=== PATIENT | male | born 1940 | race Caucasian/White ===

== ENCOUNTER 2021-10-02 10:12 | Day surgery (SDC) | payer MEDICARE, BC ==
[2021-09-27 10:05] LABS: BASOPHILS % (AUTO) 0.7 % (0-1); EOSINOPHILS # (AUTO) 0.1 X10'3 (0-0.9); EOSINOPHILS % (AUTO) 3.4 % (0-6); HEMATOCRIT 43.3 % (42.0-52.0); HEMOGLOBIN 15.3 g/dl (14.0-17.9); LYMPHOCYTES # (AUTO) 1.4 X10'3 (1.1-4.8); LYMPHOCYTES % (AUTO) 47.2 % (21-51); MEAN CORPUSCULAR HEMOGLOBIN 35.1 PG (27.0-31.0); MEAN CORPUSCULAR HGB CONC 35.3 g/dL (33.0-36.5); MEAN CORPUSCULAR VOLUME 99.5 FL (78-98); MEAN PLATELET VOLUME 7.4 FL (7.4-10.4); MONOCYTES # (AUTO) 0.3 X10'3 (0-0.9); MONOCYTES % (AUTO) 8.8 % (2-12); NEUTROPHILS # (AUTO) 1.2 X10'3 (1.8-7.7); NEUTROPHILS % (AUTO) 39.9 % (42-75); PLATELET COUNT 266 X10'3 (140-440); RED BLOOD COUNT 4.35 X10'6 (4.70-6.10); RED CELL DISTRIBUTION WIDTH 13.1 % (11.5-14.5)
[2021-09-27 10:15] LABS: ALBUMIN 3.6 G/DL (3.4-5.0); ANION GAP 10 (8-16); BLOOD UREA NITROGEN 23 MG/DL (7-18); BUN/CREATININE RATIO 18.5 (5.4-32.0); CALCIUM 8.6 MG/DL (8.5-10.1); CHLORIDE 104 MMOL/L (99-107); CREATININE 1.24 MG/DL (0.60-1.10); GLUCOSE 104 MG/DL (70-104); POTASSIUM 4.2 MMOL/L (3.5-5.1); SODIUM 138 MMOL/L (135-145); eGFR 56 ML/MIN
[2021-09-27 10:18] LABS: PARTIAL THROMBOPLASTIN TIME 30 SECONDS (22-32)
[2021-09-27 11:26] LABS: PLATELET ESTIMATE NORMAL; TOTAL CELLS COUNTED 100
[2021-09-27 11:55] LABS: SMUDGE CELLS 2+
[~2021-10-02] VITALS: Ht 175.3 cm; Wt 85.5 kg
[2021-10-02] VITALS (10 sets, daily range): BP systolic 114–170; BP diastolic 54–79
[2021-10-02] MEDS ORDERED: diphenhydrAMINE 25mg capsule PO PRN (10:30)
[2021-10-02] MEDS ORDERED: LORazepam 0.5 MG tablet PO PRN (10:30)
[2021-10-02] MEDS ORDERED: normal saline 1,000 ML IV SCH (10:30)
[2021-10-02] MEDS ORDERED: APIX5TAB3 PO (11:03)
[2021-10-02] MEDS ORDERED: HYDR12.55 PO (11:03)
[2021-10-02] MEDS ORDERED: AMLO5TAB16 PO (11:03)
[2021-10-02] MEDS ORDERED: ZOLP12.543 PO (11:03)
[2021-10-02] MEDS ORDERED: GEMF600T89 PO (11:03)
[2021-10-02] MEDS ORDERED: LEVO75TA7 PO (11:03)
[2021-10-02] MEDS ORDERED: LOSA100T57 PO (11:03)
[2021-10-02] MEDS ORDERED: DOCU-21 PO (11:10)
[2021-10-02] MEDS ORDERED: FEXO-124 PO (11:10)
[2021-10-02] MEDS ORDERED: SUPER B COMPLEX (11:10)
[2021-10-02] MEDS ORDERED: FLUTICASONE (11:10)
[2021-10-02] MEDS ORDERED: INUL2TAB5 PO ×2 (11:10→11:15)
[2021-10-02] MEDS ORDERED: ACETAMINOPHEN (11:10)
[2021-10-02] MEDS ORDERED: MELA5TAB12 PO (11:10)
[2021-10-02] MEDS ORDERED: PRAV20TA4 PO (11:10)
[2021-10-02] MEDS ORDERED: CHOL20002 PO (11:10)
[2021-10-02] MEDS ORDERED: FLUT16SP2 BOTHNARES (11:11)
[2021-10-02] MEDS ORDERED: ACET-1995 PO (11:13)
[2021-10-02] MEDS ORDERED: nitroGLYCERIN-Tridil 50MG/D5W 250 ML IV ONE (12:21)
[2021-10-02] MEDS ORDERED: verapamil 2.5 mg/ml inj IV ONE (12:22)
[2021-10-02] MEDS ORDERED: heparin 1,000unit/ml 10ml vial 10 ML ONE (12:22)
[2021-10-02] MEDS ORDERED: fentaNYL/PF 50MCG/1 ML 2ML syringe ONE (12:22)
[2021-10-02] MEDS ORDERED: midazolam 1 mg/ML 2ml injection ONE (12:22)
[2021-10-02] MEDS ORDERED: iohexol 350MG/ML 100ml bottle IV ONE (12:22)
[2021-10-02] MEDS ORDERED: LIDOcaine 1% (10mg/ml)w/preservative injection 20ml MDV ONE (12:23)
[2021-10-02] MEDS ORDERED: HYDROcodone/acetaminophen 10/325mg tab PO PRN (14:10)
[2021-10-02] MEDS ORDERED: ondansetron/PF 4mg/2ml inj IV PRN (14:10)
[2021-10-02] MEDS ORDERED: OXAZEpam 15mg capsule PO PRN (14:10)
[2021-10-02] MEDS ORDERED: normal saline 1000ml 1,000 ML IV SCH (14:10)
[2021-10-02] MEDS ORDERED: HYDROcodone/acetaminophen 5mg/325mg tablet PO PRN (14:10)
[2021-10-02] MEDS ORDERED: proCHLORperazine 10 MG/2 ml inj IV PRN (14:10)
== END 2021-10-02 18:25 | disposition home or self-care (01) ==
LOC: SSTAY O 10:12
PROVIDERS: ATTEND Internal Medicine Interventional Cardiology
DX: R94.39 Abnormal result of other cardiovascular function study (principal); R07.9 Chest pain, unspecified; I25.10 Atherosclerotic heart disease of native coronary artery without angina pectoris; I10 Essential (primary) hypertension; E11.9 Type 2 diabetes mellitus without complications; E78.5 Hyperlipidemia, unspecified; I48.91 Unspecified atrial fibrillation; I49.5 Sick sinus syndrome; I65.23 Occlusion and stenosis of bilateral carotid arteries; Z79.899 Other long term (current) drug therapy; Z79.01 Long term (current) use of anticoagulants; Z87.891 Personal history of nicotine dependence
CPT/HCPCS: 80048; 85025; 85610; 85730; 93005; 93459; 93880; 93971; 99152; C1769; C1894; J1644; J2001; J2250; J3010; J7030; Q0163; Q9967; 85007; 99153; A5120; J3490

== ENCOUNTER 2021-10-10 05:31 | Inpatient (IN) | payer MEDICARE, BC ==
[2021-10-09 14:29] LABS: CLARITY,URINE CLEAR (Clear); COLOR,URINE YELLOW (Yellow); GLUCOSE, URINE NEGATIVE (Neg); KETONES,URINE NEGATIVE (Neg); LEUKOCYTE ESTERASE ,URINE NEGATIVE (Neg); NITRITES, URINE NEGATIVE (Neg); OCCULT BLOOD,URINE NEGATIVE (Neg); PROTEIN,URINE NEGATIVE (Neg); UA COLLECTION TYPE CLN CATCH MIDSTREAM; UROBILINOGEN,URINE 0.2 E.U/dL (0.2-1.0)
[2021-10-09 14:37] LABS: PRE OP INR 1.1 INR; PRE OP PROTIME 10.9 SECONDS (9.0-12.0)
[2021-10-09 14:45] LABS: ABG BASE EXCESS -3.7 mmol/L (-2.0-2.0); ABG HCO3 19.4 mmol/L (22.0-26.0); ABG OXYGEN SATURATION 97.3 % (94-97); ABG PCO2 (T) 30.7 mmHg (35.0-48.0); ABG PO2 (T) 100.9 mmHg (75.0-100.0); ALLEN'S TEST POSITIVE; FCOHb 0.4 % (0.0-3.9); FMetHb 0.1 % (0.0-1.5); FO2Hb 96.8 % (94-97); TOTAL HEMOGLOBIN 16.1 G/dl (14.0-18.0)
[2021-10-09 14:46] LABS: BASOPHILS % (AUTO) 0.6 % (0-1); EOSINOPHILS # (AUTO) 0.1 X10'3 (0-0.9); EOSINOPHILS % (AUTO) 1.8 % (0-6); MEAN CORPUSCULAR HEMOGLOBIN 35.2 PG (27.0-31.0); MEAN CORPUSCULAR HGB CONC 35.2 g/dL (33.0-36.5); MEAN CORPUSCULAR VOLUME 99.9 FL (78-98); MEAN PLATELET VOLUME 7.9 FL (7.4-10.4); MONOCYTES # (AUTO) 0.4 X10'3 (0-0.9); MONOCYTES % (AUTO) 10.2 % (2-12); NEUTROPHILS # (AUTO) 1.2 X10'3 (1.8-7.7); NEUTROPHILS % (AUTO) 33.4 % (42-75); PRE OP HEMATOCRIT 44.8 % (42.0-52.0); PRE OP HEMOGLOBIN 15.8 g/dL (14.0-17.9); PRE OP PLATELET COUNT 232 X10'3 (140-440); RED BLOOD COUNT 4.48 X10'6 (4.70-6.10); RED CELL DISTRIBUTION WIDTH 13.1 % (11.5-14.5)
[2021-10-09 14:48] LABS: ALBUMIN 3.5 G/DL (3.4-5.0); ALBUMIN/GLOBULIN RATIO 0.8 (1.1-1.5); ALKALINE PHOSPHATASE 81 IU/L (46-116); BLOOD UREA NITROGEN 44 MG/DL (7-18); BUN/CREATININE RATIO 36.7 (5.4-32.0); CHLORIDE 106 MMOL/L (99-107); PRE OP ALT 21 U/L (30-65); PRE OP ANION GAP 13 (8-16); PRE OP AST 16 U/L (10-37); PRE OP BILIRUB, TOTAL 0.5 MG/DL (0.0-1.0); PRE OP GLUCOSE 98 MG/DL (70-104); PRE OP POTASSIUM 4.3 MMOL/L (3.4-5.1); PRE OP SODIUM 141 MMOL/L (135-145); TOTAL CARBON DIOXIDE 22.3 MMOL/L (24-32); TOTAL PROTEIN 7.8 G/DL (6.4-8.2); eGFR 59 ML/MIN
[2021-10-09 15:49] LABS: PLATELET ESTIMATE NORMAL; SMUDGE CELLS 1+; TOTAL CELLS COUNTED 100
[2021-10-09 16:04] LABS: HEMOGLOBIN A1C > 14.0 % (4.5-6.2)
[2021-10-10] VITALS (16 sets, daily range): BP systolic 91–150; BP diastolic 48–75
[~2021-10-10] VITALS: Ht 175.3 cm; Wt 94.5 kg
[~2021-10-10 05:31] MED LIST: ACET-1995 PO; AMLO5TAB16 PO; APIX5TAB3 PO; CHOL20002 PO; DOCU-21 PO; FEXO-124 PO; FLUT16SP2 BOTHNARES; GEMF600T89 PO; HYDR12.55 PO; INUL2TAB5 PO; LEVO75TA7 PO; LORazepam 2 mg/ml vial IV PRN; LOSA100T57 PO; MELA5TAB12 PO; PRAV20TA4 PO; SUPER B COMPLEX; VANCOMYCIN 1,500MG inj. 1,500 MG in normal saline 500ml IV soln 500 ML IV ONE; ZOLP12.543 PO; albuterol 2.5 MG/3 ML nebule NEB PRN; ceFAZolin 1000mg inj ONE; cefazolin/dext.iso 2gm/50ml 50 ML IV ONE; dextrose 50%-water 50ml dispensing syringe IV PRN; dextrose ORAL solution 15 GM/59 ML bottle PO PRN; epiNEPHrine 1 mg/ml inj ONE; famotidine 20mg tablet PO ONE; gabapentin 400mg capsule PO ONE; glucagon, human recombinant 1mg kit SUBCUT PRN; insulin Lispro (HumaLOG) vial - multi-dose SQ SCH; insulin glargine (Lantus) pen - multi-dose SQ SCH; metoprolol tartrate 12.5mg (1/2 tablet) PO ONE; mupirocin 2% nasal ointment 1gm UD NS ONE; ringers solution, lacted 1,000 ML IV SCH
[2021-10-10] MEDS ORDERED: dextrose 50%-water 50ml dispensing syringe IV PRN ×2 (06:10→10:55)
[2021-10-10] MEDS ORDERED: Insulin Reg/NS 100units/100mL 100 ML IV SCH ×2 (06:10→10:55)
[2021-10-10] MEDS ORDERED: sevoflurane 250ml liquid IH ONE (07:48)
[2021-10-10] MEDS ORDERED: neostigmine methylsulfate 1 MG/ML 10ml vial ONE (07:48)
[2021-10-10] MEDS ORDERED: protamine sulf. 10mg/ml inj. IV ONE (07:48)
[2021-10-10] MEDS ORDERED: rocuronium 10mg/ml inj IV ONE ×2 (07:48→07:54)
[2021-10-10] MEDS ORDERED: nitroGLYCERIN in D5W 50mg/250ml (Tridil) infusion IV ONE (07:48)
[2021-10-10] MEDS ORDERED: amiodarone in dextrose, iso-osm 150mg/100ml bag IV ONE (07:48)
[2021-10-10] MEDS ORDERED: SUFENTANIL CITRATE 50 MCG/ML 2ml ampule IV ONE (07:49)
[2021-10-10] MEDS ORDERED: MIDAZolam 1 MG/ML 5ML VIAL ONE (07:50)
[2021-10-10] MEDS ORDERED: propofol inj 20 ML IV ONE (07:54)
[2021-10-10] MEDS ORDERED: phenylephrine 10mg/ml inj. ONE (08:00)
[2021-10-10] MEDS ORDERED: heparin 10,000 units/1 ML INJ ONE (08:00)
[2021-10-10] MEDS ORDERED: sodium bicarbonate (8.4%) 1 mEq/ml syringe ONE (08:00)
[2021-10-10] MEDS ORDERED: papaverine 30 mg/ml 2ml inj. IA ONE (08:00)
[2021-10-10] MEDS ORDERED: albumin (human) 25% 100 ML IV solution IV ONE (08:00)
[2021-10-10] MEDS ORDERED: aminocaproic acid 250 MG/1 ML inj. ONE (08:00)
[2021-10-10] MEDS ORDERED: heparin 10,000 units/1 ML INJ IR ONE (08:00)
[2021-10-10] MEDS ORDERED: methylPREDNISolone sod succ 1000mg vial ONE (08:00)
[2021-10-10] MEDS ORDERED: calcium chloride 100 MG/1 ML inj IV ONE (08:00)
[2021-10-10 08:32] LABS: ABG BASE EXCESS -4.8 mmol/L (-2.0-2.0); ABG OXYGEN SATURATION 99.5 % (94-97); ABG PO2 227.8 mmHg (75.0-100.0); CL (ABG) 109 mmol/L (98-110); FCOHb 0.6 % (0.0-3.9); FMetHb 0.3 % (0.0-1.5); FO2Hb 98.6 % (94-97); GLUCOSE (ABG) 133 mg/dl (70-105); K (ABG) 3.9 mmol/L (3.5-5.0); TOTAL HEMOGLOBIN 14.4 G/dl (14.0-18.0)
[2021-10-10 09:13] LABS: ABG BASE EXCESS VENOUS -2.4 mmol/L (-2.0 - 2.0); ABG HCO3 VENOUS 22.6 mmol/L (21.0-28.0); ABG PCO2 VENOUS 39.4 mmHg (41.0-54.0); ABG PO2 VENOUS 49.9 mmHg (25.0-35.0); CL (ABG) 104 mmol/L (98-110); FCOHb VENOUS 0.3 %; FHHb VENOUS 14.3 %; FMetHb VENOUS 0.3 % (0.0 - 0.5); FO2Hb VENOUS 85.1 %; GLUCOSE (ABG) 120 mg/dl (70-105); IONIZED CA (ABG) 0.94 mmol/L (1.10-1.43); K (ABG) 3.9 mmol/L (3.5-5.0); TOTAL HEMOGLOBIN 10.6 G/dl (14.0-18.0)
[2021-10-10 09:17] LABS: ABG BASE EXCESS -2.8 mmol/L (-2.0-2.0); ABG HCO3 21.7 mmol/L (22.0-26.0); ABG OXYGEN SATURATION 99.6 % (94-97); ABG PCO2 36.2 mmHg (35.0-48.0); ABG PO2 397.1 mmHg (75.0-100.0); CL (ABG) 105 mmol/L (98-110); FCOHb 0.3 % (0.0-3.9); FMetHb 0.3 % (0.0-1.5); GLUCOSE (ABG) 123 mg/dl (70-105); IONIZED CA (ABG) 0.99 mmol/L (1.10-1.43); K (ABG) 3.9 mmol/L (3.5-5.0); TOTAL HEMOGLOBIN 10.5 G/dl (14.0-18.0)
[2021-10-10 09:36] LABS: ACT @ 1.70 U 353 SEC (193-297); ACT @ 2.84 U 417 SEC (260-420); BASELINE ACT 158 SEC (101-148); PATIENT WEIGHT 85.0k KG
[2021-10-10 09:48] LABS: ABG BASE EXCESS -3.9 mmol/L (-2.0-2.0); ABG HCO3 20.8 mmol/L (22.0-26.0); ABG OXYGEN SATURATION 99.6 % (94-97); ABG PCO2 36.5 mmHg (35.0-48.0); CL (ABG) 106 mmol/L (98-110); FMetHb 0.3 % (0.0-1.5); FO2Hb 99.3 % (94-97); GLUCOSE (ABG) 136 mg/dl (70-105); IONIZED CA (ABG) 1.02 mmol/L (1.10-1.43); K (ABG) 4.5 mmol/L (3.5-5.0); TOTAL HEMOGLOBIN 11.2 G/dl (14.0-18.0)
[2021-10-10 10:13] LABS: ABG BASE EXCESS -1.4 mmol/L (-2.0-2.0); ABG OXYGEN SATURATION 99.4 % (94-97); ABG PCO2 37.7 mmHg (35.0-48.0); ABG PO2 344.5 mmHg (75.0-100.0); CL (ABG) 106 mmol/L (98-110); FCOHb 0.3 % (0.0-3.9); FMetHb 0.3 % (0.0-1.5); FO2Hb 98.8 % (94-97); GLUCOSE (ABG) 177 mg/dl (70-105); IONIZED CA (ABG) 1.66 mmol/L (1.10-1.43); K (ABG) 4.6 mmol/L (3.5-5.0); TOTAL HEMOGLOBIN 10.7 G/dl (14.0-18.0)
[2021-10-10 10:36] LABS: ABG BASE EXCESS VENOUS -3.1 mmol/L (-2.0 - 2.0); ABG HCO3 VENOUS 22.1 mmol/L (21.0-28.0); ABG PCO2 VENOUS 40.3 mmHg (41.0-54.0); ABG PO2 VENOUS 50.7 mmHg (25.0-35.0); CL (ABG) 107 mmol/L (98-110); FCOHb VENOUS 0.3 %; FHHb VENOUS 15.8 %; FMetHb VENOUS 0.3 % (0.0 - 0.5); FO2Hb VENOUS 83.6 %; GLUCOSE (ABG) 177 mg/dl (70-105); IONIZED CA (ABG) 1.18 mmol/L (1.10-1.43); K (ABG) 4.5 mmol/L (3.5-5.0); TOTAL HEMOGLOBIN 10.8 G/dl (14.0-18.0)
[2021-10-10 10:39] LABS: ACTIVATED CLOTTING TIME 151 SEC (101-148)
[2021-10-10] MEDS ORDERED: bisacodyl 10mg suppository rectal RC PRN (10:55)
[2021-10-10] MEDS ORDERED: insulin glargine (Lantus) pen - multi-dose SQ PRN (10:55)
[2021-10-10] MEDS ORDERED: metoclopramide 5 mg/ml inj IV PRN (10:55)
[2021-10-10] MEDS ORDERED: magnesium citrate 296ml oral solution PO PRN (10:55)
[2021-10-10] MEDS ORDERED: HYDROcodone/acetaminophen 10/325mg tab PO PRN (10:55)
[2021-10-10] MEDS ORDERED: potassium CL 10mEq/100ml bag 100 ML IV PRN (10:55)
[2021-10-10] MEDS ORDERED: potassium Cl 40MEQ/1/2NS 520ml 520 ML IV PRN (10:55)
[2021-10-10] MEDS ORDERED: magnesium hydroxide 30ml (MOM) UD suspension PO PRN (10:55)
[2021-10-10] MEDS ORDERED: Neutra Phos packet PO PRN (10:55)
[2021-10-10] MEDS ORDERED: acetaminophen 325mg tablet PO PRN ×2 (10:55)
[2021-10-10] MEDS ORDERED: potassium Cl 40MEQ/250ML bag 250 ML IV PRN (10:55)
[2021-10-10] MEDS ORDERED: nitroGLYCERIN-Tridil 50MG/D5W 250 ML IV SCH (10:55)
[2021-10-10] MEDS ORDERED: mineral oil 133ml enema RC PRN (10:55)
[2021-10-10] MEDS ORDERED: sodium chloride 0.45% 1,000 ML IV SCH (10:55)
[2021-10-10] MEDS ORDERED: NORepinephrine 8mg/ 250ml NS 250 ML IV PRN (10:55)
[2021-10-10] MEDS ORDERED: magnesium 2GM in 50ml NS 50 ML IV PRN (10:55)
[2021-10-10] MEDS ORDERED: niCARDipine-NS 40mg/200ml IVPB 200 ML IV PRN (10:55)
[2021-10-10] MEDS ORDERED: pantoprazole 40 MG vial IV ONE (10:55)
[2021-10-10] MEDS ORDERED: ondansetron/PF 4mg/2ml inj IV PRN (10:55)
[2021-10-10] MEDS ORDERED: sodium phosphate inj. 15 MMOL in dextrose 5%-water 250 ML IV PRN (10:55)
[2021-10-10] MEDS ORDERED: magnesium 4gm in 100ml NS 100 ML IV PRN (10:55)
[2021-10-10] MEDS ORDERED: sodium phosphate inj. 30 MMOL in dextrose 5%-water 250 ML IV PRN (10:55)
[2021-10-10] MEDS ORDERED: morphine 4 MG/ML inj SYRINge IV PRN (10:55)
[2021-10-10] MEDS ORDERED: potassium Cl 20 mEq SR tablet PO PRN (10:55)
--- NOTE | 2021-10-10 11:10 | NUR ---
Received to room , accompanied by MDs and surgical crew. Placed on ventilator, to facility designer, arterial line and PA line pressure monitored. Chest tubes to suction at 20 cm. Shelley cath to gravity drainage. Dressings are dry and intact. See assessment record. All vasoactive drugs are infusing via central line.
[2021-10-10 11:24] LABS: ABG BASE EXCESS -4.7 mmol/L (-2.0-2.0); ABG HCO3 19.9 mmol/L (22.0-26.0); ABG OXYGEN SATURATION 98.5 % (94-97); ABG PCO2 (T) 35.4 mmHg (35.0-48.0); ABG PO2 (T) 163.8 mmHg (75.0-100.0); FCOHb 0.3 % (0.0-3.9); FMetHb 0.3 % (0.0-1.5); FO2Hb 97.9 % (94-97); PEEP 5 cm H2O; RESPIRATORY RATE 12 b/min; TIDAL VOLUME 500 mL; TOTAL HEMOGLOBIN 13.2 G/dl (14.0-18.0)
[2021-10-10] MEDS: albumin (Human) 5% 250ml 250 ML IV PRN ×5 (12:10→20:35)
[2021-10-10 12:16] LABS: BASOPHILS % (AUTO) 0.3 % (0-1); EOSINOPHILS % (AUTO) 0.9 % (0-6); HEMATOCRIT 36.2 % (42.0-52.0); HEMOGLOBIN 12.8 g/dl (14.0-17.9); LYMPHOCYTES # (AUTO) 0.5 X10'3 (1.1-4.8); LYMPHOCYTES % (AUTO) 16.8 % (21-51); MEAN CORPUSCULAR HEMOGLOBIN 35.5 PG (27.0-31.0); MEAN CORPUSCULAR HGB CONC 35.4 g/dL (33.0-36.5); MEAN CORPUSCULAR VOLUME 100.4 FL (78-98); MEAN PLATELET VOLUME 8.1 FL (7.4-10.4); MONOCYTES # (AUTO) 0.1 X10'3 (0-0.9); MONOCYTES % (AUTO) 1.8 % (2-12); NEUTROPHILS # (AUTO) 2.3 X10'3 (1.8-7.7); NEUTROPHILS % (AUTO) 80.2 % (42-75); PLATELET COUNT 168 X10'3 (140-440); RED CELL DISTRIBUTION WIDTH 13.2 % (11.5-14.5); WHITE BLOOD COUNT 2.9 X10'3 (4.5-11.0)
[2021-10-10 12:26] LABS: PARTIAL THROMBOPLASTIN TIME 28 SECONDS (22-32)
[2021-10-10 12:29] LABS: ALANINE AMINOTRANSFERASE 16 U/L (12-78); ALBUMIN 2.7 G/DL (3.4-5.0); ALBUMIN/GLOBULIN RATIO 1.1 (1.1-1.5); ALKALINE PHOSPHATASE 55 IU/L (46-116); ANION GAP 10 (8-16); ASPARTATE AMINO TRANSFERASE 28 U/L (10-37); BILIRUBIN,TOTAL 0.5 MG/DL (0.1-1.0); BLOOD UREA NITROGEN 38 MG/DL (7-18); BUN/CREATININE RATIO 30.2 (5.4-32.0); CHLORIDE 110 MMOL/L (99-107); CREATININE 1.26 MG/DL (0.60-1.10); GLUCOSE 165 MG/DL (70-104); PHOSPHORUS 2.7 MG/DL (2.3-4.5); POTASSIUM 4.1 MMOL/L (3.5-5.1); SODIUM 142 MMOL/L (135-145); TOTAL CARBON DIOXIDE 21.9 MMOL/L (24-32); TOTAL PROTEIN 5.2 G/DL (6.4-8.2); eGFR 55 ML/MIN
[2021-10-10 13:04] LABS: PLATELET ESTIMATE NORMAL; TOTAL CELLS COUNTED 100
--- NOTE | 2021-10-10 13:05 | NUR ---
Pt CI 1.6, SVRI in 4000's, decreased LVSWI. Called Dr Hercules and received order to give 3rd albumin. Pt BP adequate.
[2021-10-10] MEDS: gabapentin 300mg capsule PO SCH ×2 (13:16→20:36)
--- NOTE | 2021-10-10 13:40 | NUR ---
CVP responded to albumin dose. CI remains unchanged. Reported to Dr Hercules. Told to "relax and let it ride."
--- NOTE | 2021-10-10 14:43 | NUR ---
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 Will continue to follow. Addendum: 10/10/21 at [address] Amended: Links added.
[2021-10-10] MEDS: morphine 4 MG/ML inj SYRINge IV PRN ×2 (15:18→16:57)
--- NOTE | 2021-10-10 16:30 | NUR ---
Additional bottle of 5% albumin 250 mL ordered by Leiws Diez, PAC
[2021-10-10] MEDS: ceFAZolin/D5W- 1GM premix 50 ML IV SCH (16:31)
[2021-10-10 16:32] LABS: ABG BASE EXCESS -6.3 mmol/L (-2.0-2.0); ABG HCO3 18.7 mmol/L (22.0-26.0); ABG OXYGEN SATURATION 97.3 % (94-97); ABG PCO2 (T) 35.1 mmHg (35.0-48.0); FCOHb 0.3 % (0.0-3.9); FMetHb 0.2 % (0.0-1.5); FO2Hb 96.8 % (94-97); PEEP 5 cm H2O; TIDAL VOLUME 450 mL; TOTAL HEMOGLOBIN 11.8 G/dl (14.0-18.0)
[2021-10-10] MEDS ORDERED: albumin (Human) 5% 250ml 250 ML IV ONE (17:10)
[2021-10-10] MEDS: potassium Cl 20mEq/100mL bag 100 ML IV PRN ×3 (17:18→21:26)
[2021-10-10 17:26] LABS: BASOPHILS % (AUTO) 0.2 % (0-1); EOSINOPHILS % (AUTO) 0.3 % (0-6); HEMATOCRIT 31.2 % (42.0-52.0); HEMOGLOBIN 10.9 g/dl (14.0-17.9); LYMPHOCYTES # (AUTO) 0.7 X10'3 (1.1-4.8); MEAN CORPUSCULAR HEMOGLOBIN 35.3 PG (27.0-31.0); MEAN CORPUSCULAR HGB CONC 35.1 g/dL (33.0-36.5); MEAN CORPUSCULAR VOLUME 100.6 FL (78-98); MEAN PLATELET VOLUME 8.1 FL (7.4-10.4); MONOCYTES # (AUTO) 0.2 X10'3 (0-0.9); MONOCYTES % (AUTO) 3.4 % (2-12); NEUTROPHILS # (AUTO) 3.7 X10'3 (1.8-7.7); NEUTROPHILS % (AUTO) 81.1 % (42-75); PLATELET COUNT 146 X10'3 (140-440); RED CELL DISTRIBUTION WIDTH 13.2 % (11.5-14.5); WHITE BLOOD COUNT 4.6 X10'3 (4.5-11.0)
[2021-10-10 17:32] LABS: ALBUMIN 3.5 G/DL (3.4-5.0); ANION GAP 12 (8-16); BLOOD UREA NITROGEN 33 MG/DL (7-18); BUN/CREATININE RATIO 28.4 (5.4-32.0); CALCIUM 7.2 MG/DL (8.5-10.1); CHLORIDE 113 MMOL/L (99-107); CREATININE 1.16 MG/DL (0.60-1.10); GLUCOSE 142 MG/DL (70-104); PHOSPHORUS 2.7 MG/DL (2.3-4.5); POTASSIUM 3.5 MMOL/L (3.5-5.1); SODIUM 145 MMOL/L (135-145); TOTAL CARBON DIOXIDE 20.3 MMOL/L (24-32); eGFR 61 ML/MIN
--- NOTE | 2021-10-10 18:09 | NUR ---
Problems reprioritized. Patient report given, questions answered & plan of care reviewed with LENY Dos Santos.
--- NOTE | 2021-10-10 18:30 | NUR ---
Patient in room ICU 2043. I have received report from LENY Vitale and had the opportunity to ask questions and assume patient care.
[2021-10-10 19:41] LABS: ABG BASE EXCESS -6.5 mmol/L (-2.0-2.0); ABG HCO3 18.8 mmol/L (22.0-26.0); ABG OXYGEN SATURATION 94.3 % (94-97); ABG PCO2 (T) 35.2 mmHg (35.0-48.0); ABG PO2 (T) 71.9 mmHg (75.0-100.0); FCOHb 0.3 % (0.0-3.9); FMetHb 0.1 % (0.0-1.5); FO2Hb 93.9 % (94-97); TOTAL HEMOGLOBIN 11.7 G/dl (14.0-18.0)
[2021-10-10] MEDS: vancomycin/NS 1 GM ADD-VANTAGE 250 ML IV SCH (19:49)
[2021-10-10] MEDS: mupirocin 2% nasal ointment 1gm UD NS SCH (20:25)
[2021-10-10] MEDS: sennosides/docusate sodium tablet PO SCH (20:36)
[2021-10-10] MEDS: atorvastatin 10mg tablet PO SCH (20:36)
[2021-10-10] MEDS ORDERED: non-formulary drug (Melatonin 1 TAB) PO SCH (21:00)
[2021-10-11] VITALS (23 sets, daily range): BP systolic 91–124; BP diastolic 47–63
[2021-10-11] MEDS: ceFAZolin/D5W- 1GM premix 50 ML IV SCH (00:39)
[2021-10-11] MEDS: HYDROcodone/acetaminophen 10/325mg tab PO PRN (01:22)
[2021-10-11 03:26] LABS: BASOPHILS % (AUTO) 0.1 % (0-1); EOSINOPHILS % (AUTO) 0.1 % (0-6); HEMATOCRIT 28.5 % (42.0-52.0); LYMPHOCYTES # (AUTO) 0.5 X10'3 (1.1-4.8); LYMPHOCYTES % (AUTO) 10.2 % (21-51); MEAN CORPUSCULAR HEMOGLOBIN 35.4 PG (27.0-31.0); MEAN CORPUSCULAR HGB CONC 35.1 g/dL (33.0-36.5); MEAN CORPUSCULAR VOLUME 100.9 FL (78-98); MEAN PLATELET VOLUME 8.1 FL (7.4-10.4); MONOCYTES # (AUTO) 0.2 X10'3 (0-0.9); MONOCYTES % (AUTO) 4.5 % (2-12); NEUTROPHILS # (AUTO) 3.8 X10'3 (1.8-7.7); NEUTROPHILS % (AUTO) 85.1 % (42-75); PLATELET COUNT 138 X10'3 (140-440); RED BLOOD COUNT 2.82 X10'6 (4.70-6.10); RED CELL DISTRIBUTION WIDTH 13.5 % (11.5-14.5); WHITE BLOOD COUNT 4.5 X10'3 (4.5-11.0)
[2021-10-11 03:42] LABS: ALANINE AMINOTRANSFERASE 17 U/L (12-78); ALBUMIN 3.5 G/DL (3.4-5.0); ALBUMIN/GLOBULIN RATIO 1.5 (1.1-1.5); ALKALINE PHOSPHATASE 31 IU/L (46-116); ANION GAP 11 (8-16); ASPARTATE AMINO TRANSFERASE 24 U/L (10-37); BILIRUBIN,TOTAL 0.3 MG/DL (0.1-1.0); BLOOD UREA NITROGEN 34 MG/DL (7-18); BUN/CREATININE RATIO 27.9 (5.4-32.0); CALCIUM 7.2 MG/DL (8.5-10.1); CHLORIDE 113 MMOL/L (99-107); CREATININE 1.22 MG/DL (0.60-1.10); GLUCOSE 118 MG/DL (70-104); PHOSPHORUS 3.3 MG/DL (2.3-4.5); POTASSIUM 4.4 MMOL/L (3.5-5.1); SODIUM 144 MMOL/L (135-145); TOTAL CARBON DIOXIDE 20.1 MMOL/L (24-32); TOTAL PROTEIN 5.8 G/DL (6.4-8.2); eGFR 57 ML/MIN
[2021-10-11] MEDS ORDERED: potassium Cl 40MEQ/250ML bag 270 ML IV PRN (04:28)
--- NOTE | 2021-10-11 06:26 | NUR ---
Problems reprioritized. Patient report given, questions answered & plan of care reviewed with LENY White.
--- NOTE | 2021-10-11 07:38 | NUR ---
Dr. Hercules at bedside. MD aware of decreased blood pressure; temporary pacemaker turned off and HR SB 50s. Orders for x1 Albumin 250ml and hold beta kay. Also, orders also to pull PA and ART lines with potential transfer to step-down unit today.
[2021-10-11] MEDS ORDERED: potassium Cl 20mEq/100mL bag 100 ML IV PRN (07:50)
[2021-10-11] MEDS ORDERED: potassium Cl 40MEQ/1/2NS 520ml 520 ML IV PRN (07:50)
[2021-10-11] MEDS ORDERED: potassium Cl 40MEQ/250ML bag 250 ML IV PRN (07:50)
[2021-10-11] MEDS ORDERED: potassium CL 10mEq/100ml bag 100 ML IV PRN (07:50)
[2021-10-11] MEDS ORDERED: magnesium 4gm in 100ml NS 100 ML IV PRN (07:50)
[2021-10-11] MEDS ORDERED: magnesium 2GM in 50ml NS 50 ML IV PRN (07:50)
[2021-10-11] MEDS ORDERED: potassium Cl 20 mEq SR tablet PO PRN (07:50)
[2021-10-11] MEDS ORDERED: metoprolol tartrate 12.5mg (1/2 tablet) PO SCH (08:00)
[2021-10-11] MEDS ORDERED: loratadine 10mg tablet PO PRN (08:00)
[2021-10-11] MEDS: fluticasone nasal spray 16GM bottle NS SCH (08:00)
[2021-10-11] MEDS: vancomycin/NS 1 GM ADD-VANTAGE 250 ML IV SCH ×2 (09:16→19:23)
[2021-10-11] MEDS: pantoprazole 40mg Tablet.DR PO SCH (09:16)
[2021-10-11] MEDS: mupirocin 2% nasal ointment 1gm UD NS SCH ×2 (09:17→19:23)
[2021-10-11] MEDS: magnesium Cl slow-release 64mg tablet PO SCH ×2 (09:17→19:24)
[2021-10-11] MEDS: aspirin 325mg tablet, delayed-release (Ecotrin) PO SCH (09:17)
[2021-10-11] MEDS: potassium Cl 20 mEq SR tablet PO SCH ×2 (09:18→19:24)
[2021-10-11] MEDS: sennosides/docusate sodium tablet PO SCH ×2 (09:18→19:24)
[2021-10-11] MEDS: levoTHYROXINE 75mcg tablet PO SCH (09:18)
[2021-10-11] MEDS: gabapentin 300mg capsule PO SCH ×3 (09:18→20:10)
[2021-10-11] MEDS: cholecalciferol (vitamin D3) 1,000 unit (25mcg) tablet PO SCH (09:21)
[2021-10-11 10:37] LABS: HEMOGLOBIN A1C 5.6 % (4.5-6.2)
--- NOTE | 2021-10-11 10:57 | NUR ---
Nutrition consult: Pt s/p CABG x 5 10/10, provided pt w/ verbal and written nutrition therapy education w/ RD contact info. Pt receptive of information. Addendum: 10/11/21 at [address] Amended: Links added.
--- NOTE | 2021-10-11 11:53 | NUR ---
PT in with patient to help with first ambulation post CABG.
[2021-10-11] MEDS: insulin Lispro (HumaLOG) vial - multi-dose SQ SCH (19:09)
[2021-10-11] MEDS: atorvastatin 10mg tablet PO SCH (20:10)
--- NOTE | 2021-10-11 21:06 | NUR ---
Pt refused 2100 blood sugar check. Pt educated and verbalized understanding.
[2021-10-12] VITALS (13 sets, daily range): BP systolic 104–155; BP diastolic 39–80
[2021-10-12 03:13] LABS: BASOPHILS % (AUTO) 0 % (0-1); EOSINOPHILS % (AUTO) 0 % (0-6); HEMATOCRIT 29.2 % (42.0-52.0); HEMOGLOBIN 10.1 g/dl (14.0-17.9); LYMPHOCYTES # (AUTO) 0.7 X10'3 (1.1-4.8); LYMPHOCYTES % (AUTO) 10.1 % (21-51); MEAN CORPUSCULAR HEMOGLOBIN 35.8 PG (27.0-31.0); MEAN CORPUSCULAR HGB CONC 34.7 g/dL (33.0-36.5); MONOCYTES # (AUTO) 0.6 X10'3 (0-0.9); MONOCYTES % (AUTO) 8.9 % (2-12); NEUTROPHILS # (AUTO) 5.7 X10'3 (1.8-7.7); PLATELET COUNT 187 X10'3 (140-440); RED BLOOD COUNT 2.83 X10'6 (4.70-6.10); RED CELL DISTRIBUTION WIDTH 13.8 % (11.5-14.5)
[2021-10-12 03:21] LABS: ALBUMIN 3.3 G/DL (3.4-5.0); ANION GAP 9 (8-16); BLOOD UREA NITROGEN 43 MG/DL (7-18); BUN/CREATININE RATIO 29.9 (5.4-32.0); CALCIUM 7.4 MG/DL (8.5-10.1); CHLORIDE 112 MMOL/L (99-107); CREATININE 1.44 MG/DL (0.60-1.10); GLUCOSE 165 MG/DL (70-104); POTASSIUM 5.1 MMOL/L (3.5-5.1); SODIUM 141 MMOL/L (135-145); TOTAL CARBON DIOXIDE 20.5 MMOL/L (24-32); eGFR 47 ML/MIN
--- NOTE | 2021-10-12 06:45 | NUR ---
Patient in room ICU 2043. I have received report from Kacy MICHELE and had the opportunity to ask questions and assume patient care.
[2021-10-12] MEDS ORDERED: vancomycin/NS 1 GM ADD-VANTAGE 250 ML IV SCH (07:30)
[2021-10-12] MEDS ORDERED: magnesium 4gm in 100ml NS 100 ML IV PRN (07:35)
[2021-10-12] MEDS ORDERED: potassium Cl 40MEQ/250ML bag 250 ML IV PRN (07:35)
[2021-10-12] MEDS ORDERED: magnesium 2GM in 50ml NS 50 ML IV PRN (07:35)
[2021-10-12] MEDS ORDERED: potassium CL 10mEq/100ml bag 100 ML IV PRN (07:35)
[2021-10-12] MEDS ORDERED: potassium Cl 20 mEq SR tablet PO PRN (07:35)
[2021-10-12] MEDS ORDERED: potassium Cl 20mEq/100mL bag 100 ML IV PRN (07:35)
[2021-10-12] MEDS ORDERED: potassium Cl 40MEQ/1/2NS 520ml 520 ML IV PRN (07:35)
[2021-10-12] MEDS: pantoprazole 40mg Tablet.DR PO SCH (07:46)
[2021-10-12] MEDS: potassium Cl 20 mEq SR tablet PO SCH ×2 (07:46→21:51)
[2021-10-12] MEDS: levoTHYROXINE 75mcg tablet PO SCH (07:46)
[2021-10-12] MEDS: gabapentin 300mg capsule PO SCH (07:46)
[2021-10-12] MEDS: magnesium Cl slow-release 64mg tablet PO SCH ×2 (07:46→21:51)
[2021-10-12] MEDS: aspirin 325mg tablet, delayed-release (Ecotrin) PO SCH (07:47)
[2021-10-12] MEDS: mupirocin 2% nasal ointment 1gm UD NS SCH (07:47)
[2021-10-12] MEDS: sennosides/docusate sodium tablet PO SCH ×2 (07:47→21:46)
[2021-10-12] MEDS: cholecalciferol (vitamin D3) 1,000 unit (25mcg) tablet PO SCH (07:47)
[2021-10-12] MEDS: fluticasone nasal spray 16GM bottle NS SCH (07:47)
[2021-10-12] MEDS: vancomycin/NS 1 GM ADD-VANTAGE 250 ML IV SCH (08:07)
[2021-10-12] MEDS ORDERED: furosemide 40mg/4ml inj IV ONE (08:25)
--- NOTE | 2021-10-12 09:06 | NUR ---
Patient report given to Abraham MICHELE for pt going to room 3010.
[2021-10-12] MEDS: insulin Lispro (HumaLOG) vial - multi-dose SQ SCH ×3 (09:09→21:11)
--- NOTE | 2021-10-12 11:03 | NUR ---
F/u: Pt seen by EDDIE for r/t Cooper LIZZIE for wound healing needs post-op. Pt is agreeable to alysa CASTANEDA; LEILANI notified. Addendum: 10/12/21 at [address] Amended: Links added.
--- NOTE | 2021-10-12 11:45 | NUR ---
patient arrived to PCU at 10.30 am , report was taken on the phone from nurse noah .patient was alert and oriented x 4 . patient has a left wrist PIV KTO 20ml . patient has a midline incision with a borderline dressing . visitor are by the bedside. patient is oriented to room and equipment . pt demonstrate how to use a call olivier.
[2021-10-12] MEDS: JUVEN Shake w/Arg/Glut/Ca2+Bmb (Juven 19.3gm) pkt 240ml PO SCH (12:30)
[2021-10-12] MEDS: atorvastatin 10mg tablet PO SCH (21:46)
[2021-10-13] VITALS (7 sets, daily range): BP systolic 118–157; BP diastolic 60–85
[2021-10-13] MEDS: vancomycin/NS 1 GM ADD-VANTAGE 250 ML IV SCH (00:46)
[2021-10-13 05:54] LABS: BASOPHILS % (AUTO) 0.2 % (0-1); EOSINOPHILS % (AUTO) 0.1 % (0-6); HEMATOCRIT 30.5 % (42.0-52.0); HEMOGLOBIN 10.7 g/dl (14.0-17.9); LYMPHOCYTES % (AUTO) 18.9 % (21-51); MEAN CORPUSCULAR HEMOGLOBIN 35.6 PG (27.0-31.0); MEAN CORPUSCULAR HGB CONC 34.9 g/dL (33.0-36.5); MEAN CORPUSCULAR VOLUME 101.8 FL (78-98); MEAN PLATELET VOLUME 8.4 FL (7.4-10.4); MONOCYTES # (AUTO) 0.6 X10'3 (0-0.9); MONOCYTES % (AUTO) 11.4 % (2-12); NEUTROPHILS # (AUTO) 3.8 X10'3 (1.8-7.7); NEUTROPHILS % (AUTO) 69.4 % (42-75); PLATELET COUNT 180 X10'3 (140-440); RED CELL DISTRIBUTION WIDTH 13.7 % (11.5-14.5); WHITE BLOOD COUNT 5.4 X10'3 (4.5-11.0)
[2021-10-13 06:03] LABS: ALBUMIN 3.2 G/DL (3.4-5.0); ANION GAP 9 (8-16); BLOOD UREA NITROGEN 42 MG/DL (7-18); BUN/CREATININE RATIO 36.2 (5.4-32.0); CALCIUM 7.8 MG/DL (8.5-10.1); CHLORIDE 109 MMOL/L (99-107); CREATININE 1.16 MG/DL (0.60-1.10); GLUCOSE 124 MG/DL (70-104); SODIUM 140 MMOL/L (135-145); TOTAL CARBON DIOXIDE 21.7 MMOL/L (24-32); eGFR 61 ML/MIN
--- NOTE | 2021-10-13 07:05 | NUR ---
Problems reprioritized. Patient report given, questions answered & plan of care reviewed with PIOTR MICHELE.
[2021-10-13] MEDS: fluticasone nasal spray 16GM bottle NS SCH (08:00)
[2021-10-13] MEDS: potassium Cl 20 mEq SR tablet PO SCH ×2 (08:23→19:23)
[2021-10-13] MEDS: cholecalciferol (vitamin D3) 1,000 unit (25mcg) tablet PO SCH (08:23)
[2021-10-13] MEDS: levoTHYROXINE 75mcg tablet PO SCH (08:23)
[2021-10-13] MEDS: sennosides/docusate sodium tablet PO SCH ×2 (08:23→19:23)
[2021-10-13] MEDS: magnesium Cl slow-release 64mg tablet PO SCH ×2 (08:23→19:23)
[2021-10-13] MEDS: aspirin 325mg tablet, delayed-release (Ecotrin) PO SCH (08:23)
[2021-10-13] MEDS: pantoprazole 40mg Tablet.DR PO SCH (08:25)
[2021-10-13] MEDS ORDERED: amiodarone 150mg/dext, iso-os 100 ML IV ONE (10:35)
[2021-10-13] MEDS: amiodarone/D5 360MG/200ML BAG 200 ML IV SCH ×4 (12:14→18:09)
[2021-10-13] MEDS: JUVEN Shake w/Arg/Glut/Ca2+Bmb (Juven 19.3gm) pkt 240ml PO SCH ×2 (12:30→18:02)
[2021-10-13] MEDS ORDERED: albumin (Human) 5% 250ml 250 ML IV ONE (15:25)
--- NOTE | 2021-10-13 18:10 | NUR ---
Patient in room PCU 3010. I have received report from SUKHWINDER MICHELE and had the opportunity to ask questions and assume patient care.
--- NOTE | 2021-10-13 18:22 | NUR ---
Problems reprioritized. Patient report given, questions answered & plan of care reviewed with Kelli MICHELE.
[2021-10-13] MEDS: insulin Lispro (HumaLOG) vial - multi-dose SQ SCH (19:18)
[2021-10-13] MEDS: HYDROcodone/acetaminophen 10/325mg tab PO PRN (19:23)
[2021-10-13] MEDS: atorvastatin 10mg tablet PO SCH (21:44)
[2021-10-14] VITALS: BP 124/72
[2021-10-14 02:00] VITALS: BP 141/71
[2021-10-14 04:00] VITALS: BP 134/66
[2021-10-14] MEDS: amiodarone/D5 360MG/200ML BAG 200 ML IV SCH (04:47)
[2021-10-14 06:00] VITALS: BP 178/74
[2021-10-14 06:30] VITALS: BP 145/68
--- NOTE | 2021-10-14 06:34 | NUR ---
Problems reprioritized. Patient report given, questions answered & plan of care reviewed with ARUTRO MICHELE.
--- NOTE | 2021-10-14 06:44 | NUR ---
Patient in room PCU 3010. I have received report from LENY CARMICHAEL, and had the opportunity to ask questions and assume patient care.
[2021-10-14] MEDS: fluticasone nasal spray 16GM bottle NS SCH (08:00)
[2021-10-14] MEDS ORDERED: amiodarone 200mg tablet PO SCH (08:05)
[2021-10-14 08:09] LABS: ANION GAP 11 (8-16); BLOOD UREA NITROGEN 31 MG/DL (7-18); BUN/CREATININE RATIO 34.1 (5.4-32.0); CHLORIDE 112 MMOL/L (99-107); CREATININE 0.91 MG/DL (0.60-1.10); GLUCOSE 116 MG/DL (70-104); POTASSIUM 4.2 MMOL/L (3.5-5.1); SODIUM 145 MMOL/L (135-145); TOTAL CARBON DIOXIDE 21.8 MMOL/L (24-32); eGFR 81 ML/MIN
[2021-10-14] MEDS ORDERED: HYDR-3972 PO (08:26)
[2021-10-14] MEDS ORDERED: ASPI-1071 PO (08:26)
[2021-10-14] MEDS ORDERED: AMIO200T67 PO (08:26)
[2021-10-14] MEDS: sennosides/docusate sodium tablet PO SCH (08:36)
[2021-10-14] MEDS: aspirin 325mg tablet, delayed-release (Ecotrin) PO SCH (08:36)
[2021-10-14] MEDS: levoTHYROXINE 75mcg tablet PO SCH (08:36)
[2021-10-14] MEDS: potassium Cl 20 mEq SR tablet PO SCH (08:36)
[2021-10-14] MEDS: cholecalciferol (vitamin D3) 1,000 unit (25mcg) tablet PO SCH (08:36)
[2021-10-14] MEDS: magnesium Cl slow-release 64mg tablet PO SCH (08:36)
[2021-10-14] MEDS: pantoprazole 40mg Tablet.DR PO SCH (08:37)
--- NOTE | 2021-10-14 09:13 | NUR ---
Initial Pt s/p CABG x 5 10/10, [facility]/ 100% intake 10/11- though down to mostly 0% 10/13. Pt consuming 100% of Cooper shake BID. Noted pt A1C 5.6, recommend Regular diet at this time. LBM 10/12 receiving routine Senna. Will continue to monitor and make recommendations as appropriate. Recs: 1. Advance to Regular diet if MD agreeable 2. Cooper Shake BID BD 3. Bowel care per rx 4. Weekly wts Addendum: 10/14/21 at [address] Amended: Links added.
[2021-10-14 10:25] VITALS: BP 153/75
--- NOTE | 2021-10-14 11:03 | NUR ---
PT STABLE FOR DISCHARGE PER MD. BELONGINGS RETURNED TO PT. DISCHARGE AND FOLLOW UP INSTRUCTIONS REVIEWED WITH PT AND . PIV REMOVED WITH TIP INTACT. PT EDUCATED ON STERNAL PRECAUTIONS AND VERBALIZED UNDERSTANDING. PT TAKEN TO PRIVATE VEHICLE BY HOSPITAL STAFF. PT TRANSPORTED HOME IN PRIVATE VEHICLE.
== END 2021-10-14 10:46 | disposition home or self-care (01) | DRG 235 ==
LOC: PAS IN 05:31 → ICU 2S 11:00 → PCU 3S 10-12 09:28
PROVIDERS: ADMIT Thoracic Surgery (Cardiothoracic Vascular Surgery); ATTEND Thoracic Surgery (Cardiothoracic Vascular Surgery)
PROC: 021309W Bypass Coronary Artery, Four or More Arteries from Aorta with Autologous Venous Tissue, Open Approach (ICD-10-PCS; 2021-10-10)
PROC: 06BP4ZZ Excision of Right Saphenous Vein, Percutaneous Endoscopic Approach (ICD-10-PCS; 2021-10-10)
PROC: 5A1221Z Performance of Cardiac Output, Continuous (ICD-10-PCS; 2021-10-10)
PROC: B24BZZ4 Ultrasonography of Heart with Aorta, Transesophageal (ICD-10-PCS; 2021-10-10)
PROC: 02L70CK Occlusion of Left Atrial Appendage with Extraluminal Device, Open Approach (ICD-10-PCS; 2021-10-10)
PROC: 02100Z9 Bypass Coronary Artery, One Artery from Left Internal Mammary, Open Approach (ICD-10-PCS; principal; 2021-10-10 07:48)
DX: I25.10 Atherosclerotic heart disease of native coronary artery without angina pectoris (principal); N17.0 Acute kidney failure with tubular necrosis; E03.9 Hypothyroidism, unspecified; I48.0 Paroxysmal atrial fibrillation; E11.9 Type 2 diabetes mellitus without complications; E78.00 Pure hypercholesterolemia, unspecified; E87.70 Fluid overload, unspecified
CPT/HCPCS: 36415; 36600; 71045; 71046; 80048; 80053; 81003; 82330; 82435; 82803; 82947; 82948; 83036; 83735; 84100; 84132; 84295; 84443; 85007; 85018; 85025; 85347; 85610; 85730; 86885; 86900; 86901; 86920; 87081; 87635; 93005; 93312; 93325; 94002; 94010; 94760; 97110; 97116; 97161; 97530; A4618; A6258; A6449; A7000; A7048; C1751; C9113; G0378; J0171; J0690; J1644; J1815; J1940; J2060; J2150; J2250; J2270; J2370; J2405; J2440; J2704; J2710; J2720; J2930; J3370; J3475; J3480; J3490; J7030; J7040; J7050; J7120; P9045; P9047